=== PATIENT | female | born 1955 | race Caucasian/White ===

== ENCOUNTER → 2021-12-25 | Outpatient (CLI) | payer OTHER ==
[~2021-12-25] MED LIST: REGADENOSON 0.4 MG/5 ML PF SYG IVP SCH
== END | disposition home or self-care (01) ==
LOC: SHCH 07:38
PROVIDERS: ATTEND Internal Medicine Cardiovascular Disease
DX: I25.10 Atherosclerotic heart disease of native coronary artery without angina pectoris (principal); E78.5 Hyperlipidemia, unspecified; E11.9 Type 2 diabetes mellitus without complications; Z95.5 Presence of coronary angioplasty implant and graft; Z79.84 Long term (current) use of oral hypoglycemic drugs; Z79.899 Other long term (current) drug therapy
CPT/HCPCS: 78452; 96374; 93017; J2785; A9500 ×2

== ENCOUNTER → 2022-10-14 | Outpatient (CLI) | payer OTHER | END | disposition home or self-care (01) | LOC: RAH 13:03 | PROVIDERS: ATTEND Family Medicine | DX: M79.604 Pain in right leg (principal); R25.2 Cramp and spasm | CPT/HCPCS: 93971 ==

== ENCOUNTER → 2023-05-26 | Outpatient (CLI) | payer OTHER ==
[2023-05-26 12:49] LABS: ALBUMIN 4.5 g/dL (3.5-5.0); BILIRUBIN,TOTAL 0.6 mg/dL (0.2-1.0); CREATININE 0.6 mg/dL (0.5-1.0); POTASSIUM 4.1 mmol/L (3.5-5.1); T4 (THYROXINE) 8.6 ug/dL (4.7-13.3); THYROID STIMULATING HORMONE 2.93 uIU/mL (0.36-3.74); TOTAL PROTEIN, SERUM 7.8 g/dL (6.0-8.3)
== END | disposition home or self-care (01) ==
LOC: LAB 08:51
PROVIDERS: ATTEND Internal Medicine Cardiovascular Disease
DX: I25.10 Atherosclerotic heart disease of native coronary artery without angina pectoris (principal); I10 Essential (primary) hypertension; E78.5 Hyperlipidemia, unspecified; Z95.5 Presence of coronary angioplasty implant and graft; Z79.899 Other long term (current) drug therapy
CPT/HCPCS: 36415; 80053; 80061; 82306; 84436; 84443

== ENCOUNTER → 2024-06-05 | Outpatient (CLI) | payer OTHER ==
--- NOTE | 2024-06-05 14:22 | HMCSR ---
APPROVED REPORT Height: 5 ft 1in Weight: 100 lbs TEST INDICATIONS CAD The imaging protocol used to acquire images was Rest Tc-99m/stress Tc-99m 1 day Consent: The procedure was explained and understood by the patient. Informerd consent was witnessed [facility] First, low dose rest was performed then high dose stress. RESTING DATA: The resting ekg shows: NSR Rest SPECT myocardial perfusion imaging was performed in supine position minutes following the intra venous injection of 10 mCi of Tc-99 Sestamibi. Time of rest injection: Date: 06/05/2024 Time of rest imaging: Date: 06/05/2024 EXERCISE STRESS: At peak stress, the patient was injected intravenously with 27mCi of Tc-99 Sestamibi. Time of stress injection: Date: 06/05/2024 Time of stress imaging: Date: 06/05/2024 Heart Rate at time of stress injection: 130 bpm. Patient continued to exercise for 7 minute(s). The images were gated to evaluate regional wall motion and calculate left ventricular ejection fracti on. STRESS DETAILS Reason for Termination: Reached target heart rate Stress Symptoms: No chest pain or symptoms Max HR Achieved: 130 bpm % of APMHR Achieved: 85 Max Blood Pressure: 214/88 mmHg Exercise duration: 8 min Stress ECG: NSR, Tachycardia Maximum ST Depression: 1 mm Angina Score during exercise: None Lin Treadmill Score: 8.[address] Change: Yes - Horizontal ST depression Overall Exercise Capacity: Good Study quality was good. Lung uptake was Normal. Artifact: breast artifact LEFT VENTRICLE Size: The left ventricular size is small. Systolic Function:The left ventricular systolic function is hyperdynamic. Wall Motion: No regional wall motion abnormalities noted. The left ventricular ejection fraction was calculated to be 82%.TID = 0.86. LV PERFUSION There was no evidence of significant reversible ischemic or perfusion defects present. Breast artifa ct is noted. IMPRESSION Normal exercise nuclear stress test. Global LV Function: Hyperdynamic Stress ECG Summary: Nondiagnostic LV Perfusion Summary: Normal Conclusion Normal exercise nuclear stress test. Global LV Function: Hyperdynamic with a calculated ejection fraction at 83% and a transient ischemic dilatation ratio normal at 0.86 Stress ECG Summary: Abnormal for ischemia with [address] segment depression noted (please s ee perfusion images for clinical correlation). Excellent exercise capacity LV Perfusion Summary: Normal perfusion noted on both rest and stress imaging. Breast artifact is shane reciated. Clinical correlation recommended Low risk scan
== END | disposition home or self-care (01) ==
LOC: SHCH 05-29 07:44
PROVIDERS: ATTEND Internal Medicine Cardiovascular Disease
DX: I25.9 Chronic ischemic heart disease, unspecified (principal); R00.0 Tachycardia, unspecified; I25.10 Atherosclerotic heart disease of native coronary artery without angina pectoris
CPT/HCPCS: 78452; 93017; A9500 ×2